=== PATIENT | female | born 1995 | race African-American/Black ===

== ENCOUNTER 2017-05-24 18:56 | Emergency (ER) | payer SELFPAY ==
[2017-05-24 22:05] LABS: Bilirubin Negative (Negative); Blood, Urine Negative (Negative); Glucose, Urine (Dipstick) Negative (Negative); Ketone, Urine Trace mg/dL (Negative); Nitrite Negative (Negative); Protein, Urine (Dipstick) Negative (Neg-Trace)
== END 2017-05-24 22:34 | disposition home or self-care (01) ==
LOC: ERS 18:56
DX: K62.89 Other specified diseases of anus and rectum (principal); J45.909 Unspecified asthma, uncomplicated; F41.9 Anxiety disorder, unspecified; F32.9 Major depressive disorder, single episode, unspecified
CPT/HCPCS: 81003; 81025; 82274; 99283

== ENCOUNTER 2017-10-02 13:55 | Emergency (ER) | payer MEDICAID, SELFPAY ==
[2017-10-02 15:17] LABS: Bilirubin Negative (Negative); Blood, Urine Negative (Negative); Clarity CLEAR (Clear); Glucose, Urine (Dipstick) Negative (Negative); Leukocyte Negative (Negative); Nitrite Negative (Negative); Protein, Urine (Dipstick) Negative (Neg-Trace); Specific Gravity, Urine 1.018 (1.002-1.036); Urobilinogen 0.2 mg/dL (0.2-1.0); pH, Urine 6.5 (5.0-9.0)
== END 2017-10-02 15:27 | disposition home or self-care (01) ==
LOC: ERS 13:55
DX: J30.2 Other seasonal allergic rhinitis (principal); F41.9 Anxiety disorder, unspecified; F32.9 Major depressive disorder, single episode, unspecified
CPT/HCPCS: 81003; 99283

== ENCOUNTER 2018-06-20 10:57 | Outpatient (CLI) | payer MEDICAID ==
--- NOTE | 2018-06-20 13:14 | ULT ---
LIMITED RIGHT BREAST ULTRASOUND: Date: 06-20-18 Provided Clinical History: Right breast palpable abnormality. FINDINGS: Limited sonographic interrogation was performed of the right breast in the region of palpable concern . The sonographic appearance of the breast parenchyma in this region is normal. IMPRESSION: No sonographic abnormality is evident in the region of palpable concern. Negative imaging findings sh ould not preclude further evaluation of a clinically suspicious area. The patient was referred back t o her physician. POS: MARIA ESTHER
== END 2018-06-20 10:58 | disposition home or self-care (01) ==
LOC: BICULT 10:57
PROVIDERS: ATTEND Family Medicine
DX: N63.10 Unspecified lump in the right breast, unspecified quadrant (principal)

== ENCOUNTER 2018-10-21 00:48 | Emergency (ER) | payer MEDICAID, SELFPAY ==
[2018-10-21 02:42] LABS: Actual Bicarbonate (HCO3a) 28.3 mEq/L (22-28); Analyzer IN Cardio ER; CO2 Tension 41.3 mmHg (35.0-45.0); Hemoglobin (Hb) 12.8 g/dL (12.0-16.0); O2 Tension (PaO2) 355.4 mmHg (80.0-100.0); Potassium - ABG Lab 3.52 mmol/L (3.70-5.30); pH, Arterial 7.45 (7.35-7.45)
[2018-10-21 02:59] LABS: ALV-art Gradient 305.975 (0-20); Puncture Site RBA
== END 2018-10-21 03:09 | disposition home or self-care (01) ==
LOC: ERS 00:48
DX: Z77.098 Contact with and (suspected) exposure to other hazardous, chiefly nonmedicinal, chemicals (principal); R51 Headache; J45.909 Unspecified asthma, uncomplicated; F41.9 Anxiety disorder, unspecified; F32.9 Major depressive disorder, single episode, unspecified
CPT/HCPCS: 82805; 94760

== ENCOUNTER 2018-12-20 03:42 | Emergency (ER) | payer SELFPAY ==
[2018-12-20] MEDS ORDERED: Dexamethasone 10 MG/ML VIAL ONE (05:01)
[2018-12-20] MEDS ORDERED: Acetaminophen 500 MG TAB ONE (05:01)
--- NOTE | 2018-12-20 08:40 | RAD ---
CHEST 1 VIEW: INDICATION: History of cough and congestion. COMPARISON: Prior exam dated 12/15/2016. IMPRESSION: No acute cardiopulmonary abnormality. The examination has not appreciably changed from the compariso n. POS: BH
== END 2018-12-20 06:43 | disposition home or self-care (01) ==
LOC: ERS 03:42
DX: J20.9 Acute bronchitis, unspecified (principal); J30.9 Allergic rhinitis, unspecified; F41.9 Anxiety disorder, unspecified; F32.9 Major depressive disorder, single episode, unspecified; Z79.899 Other long term (current) drug therapy
CPT/HCPCS: 71045; J1100

== ENCOUNTER 2019-07-14 14:07 | Outpatient (CLI) | payer OTHER ==
--- NOTE | 2019-07-14 15:58 | MRI ---
MR OF THE LEFT HINDFOOT WITHOUT IV CONTRAST: 07/14/19 INDICATION: History of left ankle injury with persistent left ankle pain. COMPARISON: Prior MR of the left hindfoot dated 08/05/16 and radiographs of the left foot and ankle dated 06/25/16 . FINDINGS: As seen on the comparison examination is prominent pes planus deformity. There is early degenerative changes seen at the talonavicular joint with marginal osteophytes. Previously related stress induced bone marrow edema of the navicular, talus and calcaneus have intervally resolved. No definite fractur e is noted. No residual abnormal marrow edema is present. There is a small subchondral cyst-like abno rmality seen subjacent to the sinus tarsi within the calcaneus. There is no overt evidence to suggest presence of an osseous coalition. Lisfranc ligament is intact. The ATFL, PTFL, calcaneofibular, syn desmotic and deltoid ligaments are intact. The peroneal and medial flexor tendons are intact. The ext ensor tendons intact. The Achilles tendon is intact. The plantar fascia appears within normal limits. IMPRESSION: 1. Resolution of previously seen stress related edema involving the talus, navicular and calcane us. No residual abnormal marrow edema or stress related fracture grossly evident. There is some roddy y degenerative changes seen at the talonavicular articulation. 2. Pes planus deformity. POS: OFF
== END 2019-07-14 14:08 | disposition home or self-care (01) ==
LOC: SCSMRI 14:07
PROVIDERS: ATTEND Podiatrist
DX: M76.822 Posterior tibial tendinitis, left leg (principal)

== ENCOUNTER 2021-10-20 23:24 | Emergency (ER) | payer MEDICAID, SELFPAY | END 2021-10-21 02:09 | disposition home or self-care (01) | LOC: ERS 23:24 | DX: M79.661 Pain in right lower leg (principal) ==

== ENCOUNTER 2022-08-26 18:13 | Emergency (ER) | payer MEDICAID, OTHER ==
[2022-08-26 18:43] LABS: Hemoglobin 12.3 g/dL (12.0-16.0); Mean Corpuscular Hemoglobin 24.4 pg (27.0-31.0); Mean Corpuscular Volume 73.9 fl (78.0-98.0); Mean Platelet Volume 9.3 fL (7.4-10.4); Platelet Count 287 10x3/uL (130-400); RBC Distribution Width 12.4 % (11.5-14.5); Red Blood Cell (RBC) Count 5.04 mill/uL (4.20-5.40); White Blood Cell (WBC) Count 8.5 10x3/uL (4.8-10.8)
[2022-08-26 18:48] LABS: MDiff Complete? YES; Microcytosis SLIGHT = 6-15 cells (100X) (0-5/hpf); Platelet Morphology Comment Appears Adequate
[2022-08-26 18:49] LABS: #Eosinphils 0.1 thou/uL (0.0-0.7); #Lymphocytes 1.6 thou/uL (1.20-3.40); #Monocytes 0.5 thou/uL (0.11-0.59); #Neutrophils 6.3 thou/uL (1.40-6.50); %Basophils 0.1 % (0.0-1.0); %Eosinophils 0.8 % (0.0-10.0); %Monocytes 5.9 % (0.0-10.0); %Neutrophils 74.1 % (42.0-75.0)
[2022-08-26] MEDS ORDERED: Lidocaine 2% PF 5 ML VIAL ONE (21:04)
[2022-08-26] MEDS ORDERED: Lidocaine 1% PF 5 ML VIAL ONE (21:06)
[2022-08-26] MEDS ORDERED: Lidocaine 1% w/Epinephrine 1:100K 20 ML VIAL ONE (21:07)
== END 2022-08-26 22:12 | disposition home or self-care (01) ==
LOC: ERS 18:13
DX: K91.840 Postprocedural hemorrhage of a digestive system organ or structure following a digestive system procedure (principal)
CPT/HCPCS: 36415; 85025; 99284; J2001

== ENCOUNTER 2023-04-23 13:56 | Outpatient (CLI) | payer MEDICAID | END 2023-04-23 13:57 | disposition home or self-care (01) | LOC: BICULT 13:56 | PROVIDERS: ATTEND Obstetrics & Gynecology | DX: N64.4 Mastodynia (principal) ==

== ENCOUNTER 2025-04-05 00:58 | Emergency (ER) | payer OTHER ==
[2025-04-05 02:28] LABS: #Basophils Less than 0.03 10x3/uL (0.0-0.2); #Eosinophils 0.18 10x3/uL (0.0-0.7); #Monocytes 0.48 10x3/uL (0.11-0.59); #Neutrophils 4.27 10x3/uL (1.40-6.50); %Basophils 0.3 % (0.0-1.0); %Eosinophils 2.3 % (0.0-10.0); %Lymphocytes 35.3 % (21.0-51.0); %Monocytes 6.3 % (0.0-10.0); %Neutrophils 55.5 % (42.0-75.0); Hematocrit 38.1 % (36.0-47.0); Hemoglobin 12.0 g/dL (12.0-16.0); Mean Corpuscular Hemoglobin 22.8 pg (27.0-31.0); Mean Corpuscular Volume 72.4 fL (78.0-98.0); Platelet Count 294 10x3/uL (130-400); Red Blood Cell (RBC) Count 5.26 mill/uL (4.20-5.40); White Blood Cell (WBC) Count 7.68 10x3/uL (4.8-10.8)
[2025-04-05 02:32] LABS: BHCG - Serum Negative (NEGATIVE); Pregs Control Background? CLEAR/WHITE (CLR/WHITE); Pregs Control Bar Appear? YES (CONTROL BAR)
[2025-04-05 02:39] LABS: Bacteria/HPF 1+ HPF (None Seen); CAUTI Indications for Culture Pelvic or flank pain; Glucose, Urine (Dipstick) Normal (Negative); Leukocyte Negative Leu/uL (Negative); Protein, Urine (Dipstick) Negative (Neg-Trace); RBC/HPF 0-3 HPF (0-3); Specific Gravity, Urine 1.014 (1.002-1.036); WBC/HPF 0-3 HPF (0-3)
[2025-04-05 02:40] LABS: ALT (SGPT) 15 U/L (Less than 34); AST (SGOT) 20 U/L (11-34); Albumin 4.3 g/dL (3.1-4.5); Alkaline Phosphatase 105 U/L (40-110); Anion Gap 14 mmol/L (10-20); BUN (Urea Nitrogen) 11 mg/dL (7.0-18.7); Bilirubin, Total 0.4 mg/dL (0.3-1.2); Calc. Creatinine Clearance 0 mL/min (70-130); Calcium 9.4 mg/dL (7.8-10.44); Carbon Dioxide 26 mmol/L (22-29); Chloride 107 mmol/L (98-107); Globulin 3.5 g/dL (2.4-3.5); Glucose 73 mg/dL (70-105); Lipase 26 U/L (8-78); Potassium 3.9 mmol/L (3.5-5.1); Sodium 143 mmol/L (136-145)
[2025-04-05 02:40] LABS: Urine Culture Reflex No No
[2025-04-05 05:09] LABS: Anisocytosis SLIGHT = 6-15 cells HPF (0-5); Platelet Adequacy Comment Platelets Normal
== END 2025-04-05 03:33 | disposition home or self-care (01) ==
LOC: ERS 00:58
DX: R10.9 Unspecified abdominal pain (principal)
CPT/HCPCS: 80053; 81001; 83690; 84703; 85025; 99283